=== PATIENT | male | born 1965 | race Caucasian/White ===

== ENCOUNTER 2016-10-21 15:02 | Emergency (ER) | payer OTHER ==
[2016-10-21 15:59] VITALS: BP 131/85; PULSE 87; TEMP 98; BMI 33.3
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
== END 2016-10-21 16:32 | disposition home or self-care (01) ==
LOC: ED 15:02
DX: S39.012A Strain of muscle, fascia and tendon of lower back, initial encounter (principal); V49.40XA Driver injured in collision with unspecified motor vehicles in traffic accident, initial encounter; Y93.9 Activity, unspecified; Y92.410 Unspecified street and highway as the place of occurrence of the external cause
CPT/HCPCS: 99282

== ENCOUNTER 2016-10-24 08:49 | Emergency (ER) | payer OTHER ==
[2016-10-24 08:50] VITALS: BMI 33.3
[2016-10-24] MEDS ORDERED: NS 1,000 ML IV ONE (10:26)
[2016-10-24] MEDS ORDERED: SODIUM CHLORIDE 0.9% 10 ML FLUSH FLUSH PRN (10:26)
--- NOTE | 2016-10-24 10:28 | EDPRACDOC ---
- General Information Chief Complaint: Generalized Weakness Stated Complaint: WEAKNESS (LEGS) Time Seen by Provider: 10/24/16 10:20 Information Source: Patient Home Medications: Home Medications Cyclobenzaprine HCl [Flexeril] 10 mg PO TID PRN #20 tablet 10/21/16 Naproxen Sodium 500 mg PO BID PRN #20 tablet.sa 10/21/16 Oxycodone HCl [Oxycodone Immediate Release] 10 mg PO TID 10/21/16 Alprazolam [Xanax] 1 mg PO Q8H PRN 10/24/16 Diazepam [Valium] 5 mg PO TID PRN #15 tablet 10/24/16 Duloxetine [Cymbalta] 60 mg PO DAILY 10/24/16 Gabapentin [Neurontin] 300 mg PO BID PRN 10/24/16 Lisinopril/Hydrochlorothiazide [Lisinopril-Hctz 20-12.5 mg Tab] 1 tab PO DAILY 10/24/16 Oxycodone Immediate Release [Oxycodone Immediate Release (OxyIR)] 5 mg PO Q6H PRN #20 tab 10/24/16 Prednisone [Deltasone, Orasone] 20 mg PO DAILY #20 tab 10/24/16 Simvastatin [Zocor] 20 mg PO Q48H 10/24/16 Testosterone Cypionate [Depo-Testosterone] 1 ml IM Q14D 10/24/16 Allergies/Adverse Reactions: Allergies Allergy/AdvReac Type Severity Reaction Status Date / Time No Known Allergies Allergy Verified 10/21/16 16:08 - History of Present Illness Onset: yesterday PM Exact Onset of Symptoms: Unknown HPI: Pt states after taking flexeril he became weak and his legs "gave out". Pt went to PCP for medication refill due to back pain and had high BP and dizziness so sent to ED. Denies fever, vision changes, cough, congestion, cp, sob, abd pain, n/v, loss of control bowel or bladder, rash. Symptoms Started: Reports: Suddenly Symptoms Description: Constant Weakness: Bilateral: Generalized Symptoms: Reports: Weak Symptom Severity: Reports: Unable to performs ADL's Associated signs and symptoms:: Reports: None ED Past Medical History - History Reviewed Yes Nurses notes reviewed and agree except as marked - Patient Medical History Neurological History: Reports: Cerebrovascular Accident (11 years ago) Cardiac History: Reports: Hypertension Psychological History: Denies: Depression Additional Past Medical History: CHRONIC BACK PAIN - Social Medical History Smoking Status: Heavy tobacco smoker (5 or more cigarettes/day or daily pipe/ cigar) ETOH: None Substance Abuse: None EDM Review of Systems - Review of Systems Constitutional: Weakness Eyes: No Symptoms Reported. negative: Redness, Blurred Vision, Double Vision, Discharge, Pain, Light Sensitive, Photophobia Ears: No Symptoms Reported. negative: Pain, Hearing Loss, Drainage, Ear Pulling Throat: No Symptoms Reported. negative: Pain, Swelling Nose: No Symptoms Reported. negative: Congestion, Bleeding, Discharge, Injection, Swelling, Deformity, Ecchymosis, Tender, Abrasion, Laceration Mouth: No Symptoms Reported. negative: Pain, Drooling Respiratory: No Symptoms Reported. negative: Cough, Brassy Cough, Barky Cough, Shortness of Breath, Wheezing, Hemoptysis Cardiovascular: No Symptoms Reported. negative: Chest Pain, Palpitations, Syncope, Edema, Orthopnea, PND, Skin Mottling, Cyanosis Gastrointestinal: No Symptoms Reported. negative: Pain, Constipation, Nausea, Vomiting, Diarrhea, Melena, Formula Intolerance Genitourinary: No Symptoms Reported. negative: Dysuria, Hematuria, Frequency, Discharge, Bleeding, Testicular Pain, Neurological: Dizziness, Weakness Musculoskeletal: Back Integumentary: No Symptoms Reported. negative: Itching, Rash, Bruising, Wound Allergic/Immunologic: No Symptoms Reported. negative: Hives, Itching Hematologic: No Symptoms Reported. negative: Lymphadenopathy, Easy Bruising, Easy Bleeding Psychiatric: No Symptoms Reported. negative: Anxiety, Depression, Hallucinations, Insomnia, Suicidal - Physical Exam Constitutional: Alert Oriented to: Time, Person, Place Last recorded Vital Signs: Last Vital Signs Temp 98.5 F 10/24/16 08:58 Pulse 74 10/24/16 09:15 Resp 20 10/24/16 09:15 BP 150/87 10/24/16 09:15 Pulse Ox 95 10/24/16 09:15 Oxygen Pulse Oxygen Saturation 95 O2 Device Room Air Oxygen Flow Rate Fraction of Inspired Oxygen ( FIO2) - HEENT Head: Normal ( normocephalic) Eye Exam: Normal (PERRL, EOMI, Sclera white) Oropharynx: Normal (Pharynx:Moist without exudate,Gums-no swelling) Tympanic Membrane: Normal ENT EAC: Normal TMJ: Normal Nose: No Symptoms Reported (septum midline) Neck: Normal (FROM, trachea at midline) - Respiratory/Cardiovascular Respiratory: Normal - CTA (BBS clear to auscultation without adventitious sounds ) Cardiovascular: Normal (RRR without murmur, gallop or rub) - GI Auscultation: Normal (NABS) Palpation: Normal (Soft,No rebound or guarding, non distended) Tenderness: Non tender Pena's Sign: Negative - Musculoskeletal Back: Lumbar TTP Extremities: Normal (Normal tone, Pulses 2+ No cyanosis or edema, FROM) - Integumentary Skin: Normal, Warm, Dry Lymphatics: Normal (no adenopathy) - Neurologic Memory Impaired: Normal Motor Function: Normal (Normal tone, Pulses 2+ No cyanosis or edema, FROM) Cranial Nerve: Normal (CN II-X11 intact sensation, strength 5/5) Cerebellar: Normal Mood Description: Normal Perception: Normal - Differential Diagnosis Dehydration, Electrolyte disorder, Vertigo, Other (medication reaction) - Results 10/24/16 10:05 10/24/16 10:05 - EKG EKG #1 EKG Time: 09:15 Rate: bpm: 74 [employer]: Normal Rhythm: NSR Block: None ST: Normal - Diagnostic Imaging Chest Image interpreted by: Radiologist IMPRESSION: No active disease. L-Spine Image interpreted by: Radiologist IMPRESSION: 1. Mild degenerative change at the lumbosacral junction, stable compared to previous plain film and MRI exams of 2012. 2. Mild dextroscoliosis which may be positional in nature. 3. No acute findings. MRI: IMPRESSION: 1. Asymmetric right-sided facet hypertrophy at L3-4 with an associated posterior synovial cysts but no significant stenosis. 2. Mild right foraminal narrowing secondary to a mild broad-based disc bulge and facet hypertrophy in the setting of short pedicles. 3. Mild broad-based disc protrusion with chronic endplate marrow change and mild facet hypertrophy leads to mild foraminal narrowing bilaterally, worse on the left. Head Image interpreted by: Radiologist IMPRESSION: 1. No bleed or acute ischemia identified. 2. Chronic changes in the frontal lobes, primarily involving the subcortical white matter, also described on previous studies. 3. Significant paranasal sinus disease. Decision Time to Discharge: 13:58 - Departure Disposition: Home Condition: Good Final Diagnosis: Attacks of weakness, Lumbar radiculopathy Instructions: Weakness (General), Lumbar Radiculopathy (ED) Education/Counseling Given To: Patient Education/Counseling Given Regarding: Diagnosis, Treatment, Follow Up Referrals: None,No Provider [Primary Care Provider] - One Week Gregorio Foster MD [Staff Physician] - One Week Prescriptions: New Diazepam [Valium] 5 mg PO TID PRN #15 tablet PRN Reason: Muscle Spasms Oxycodone Immediate Release [Oxycodone Immediate Release (OxyIR)] 5 mg PO Q6H PRN #20 tab PRN Reason: Pain Prednisone [Deltasone, Orasone] 20 mg PO DAILY #20 tab No Action Oxycodone HCl [Oxycodone Immediate Release] 10 mg PO TID Cyclobenzaprine HCl [Flexeril] 10 mg PO TID PRN #20 tablet PRN Reason: Muscle Spasms Naproxen Sodium 500 mg PO BID PRN #20 tablet.sa PRN Reason: Pain Simvastatin [Zocor] 20 mg PO Q48H Gabapentin [Neurontin] 300 mg PO BID PRN PRN Reason: Pain Alprazolam [Xanax] 1 mg PO Q8H PRN PRN Reason: Anxiety Testosterone Cypionate [Depo-Testosterone] 1 ml IM Q14D Duloxetine [Cymbalta] 60 mg PO DAILY Lisinopril/Hydrochlorothiazide [Lisinopril-Hctz 20-12.5 mg Tab] 1 tab PO DAILY Additional Instructions: Follow up with Personal MD in 1-2 days. Return for worse or different symptoms.
[2016-10-24 10:39] LABS: AUTOMATED BASOPHIL 0.5 % (0-2); AUTOMATED LYMPH 30.1 % (17-44); AUTOMATED MONOCYTE 9.7 % (3-10); AUTOMATED NEUTROPHIL 56.7 % (45-76)
[2016-10-24 10:45] LABS: LEUKOCYTES/URINE NEG (NEGATIVE); NITRITE/URINE NEG (NEGATIVE); RBC/URINE 0-2 (0-2); URINE OCCULT BLOOD NEG (NEG/TRACE); WBC/URINE 0-2 (0-2)
[2016-10-24 10:55] LABS: PT-INR 1.1
[2016-10-24 10:57] LABS: BLOOD UREA NITROGEN 10 MG/DL (9-20); CALC CORRECTED 8.8 MG/DL (8.4-10.2); CALCIUM 8.5 MG/DL (8.4-10.2); CALCULATED OSMOLALITY 264 MOs/Kg (270-290); CHLORIDE 101 mEq/L (98-107); GLUCOSE 111 MG/DL (70-99); SODIUM LEVEL 137 mEq/L (137-146); TOTAL PROTEIN 6.8 G/DL (6.3-8.2)
[2016-10-24] MEDS ORDERED: NS 1,000 ML IV SCH (11:00)
--- NOTE | 2016-10-24 11:46 | DIRPT ---
CLINICAL DATA: Dizziness with multiple falls. EXAM: CHEST 1 VIEW COMPARISON: None. FINDINGS: The heart size is borderline but poorly evaluated on a portable film. The sheila and mediastinum are normal. No pulmonary nodules, masses, or focal infiltrate. No overt edema. IMPRESSION: No active disease. Electronically Signed By: Jono Whitney III, M.D On: 10/24/2016 11:43
--- NOTE | 2016-10-24 11:46 | DIRPT ---
CLINICAL DATA: Multiple falls today, chronic back pain for years. EXAM: LUMBAR SPINE - COMPLETE 4+ VIEW COMPARISON: Plain film of the lumbar spine dated 06/26/2012 and MRI of the lumbar spine dated 07/04/2012. FINDINGS: Stable mild degenerative change at the lumbosacral junction with associated disc space narrowing and mild osseous spurring. Remainder the disc spaces of the lumbar spine and lower thoracic spine appear well preserved. There is a mild dextroscoliosis at the thoracolumbar junction which may be positional in nature. Osseous alignment appears otherwise normal. No fracture line or displaced fracture fragment seen. No acute - appearing cortical irregularity or osseous lesion. Bone mineralization is normal. Upper sacrum appears intact and normal in mineralization. Atherosclerotic changes noted along the gracia of the infrarenal abdominal aorta. Paravertebral soft tissues otherwise unremarkable. IMPRESSION: 1. Mild degenerative change at the lumbosacral junction, stable compared to previous plain film and MRI exams of 2011. 2. Mild dextroscoliosis which may be positional in nature. 3. No acute findings. Electronically Signed By: Jimmy Rogel M.D. On: 10/24/2016 11:44
--- NOTE | 2016-10-24 11:55 | DIRPT ---
CLINICAL DATA: Bilateral lower extremity weakness EXAM: CT HEAD WITHOUT CONTRAST TECHNIQUE: Contiguous axial images were obtained from the base of the skull through the vertex without intravenous contrast. COMPARISON: There are no comparisons available for review. However, reports from previous brain CT and MRIs from November 2002 were utilized. FINDINGS: Significant paranasal sinus disease is identified with mucosal thickening and opacification. The perinasal sinus disease involves the frontal, ethmoid, sphenoid, and maxillary sinuses. No air-fluid levels identified. No associated bony erosion is seen on this study. The mastoid air cells and middle ears are well-aerated. No bony abnormalities. Extracranial soft tissues are normal. No subdural, epidural, or subarachnoid hemorrhage. No mass, mass effect, or midline shift. Ventricles and sulci are unremarkable. The cerebellum, brainstem, and basal cisterns are normal. White matter changes in the frontal lobes bilaterally, left greater than right, are described on previous studies. There appears to be minimal cortical involvement on the left towards the vertex, also described on the previous MRI. No acute cortical ischemia identified. IMPRESSION: 1. No bleed or acute ischemia identified. 2. Chronic changes in the frontal lobes, primarily involving the subcortical white matter, also described on previous studies. 3. Significant paranasal sinus disease. Electronically Signed By: Jono Whitney III, M.D On: 10/24/2016 11:52
[2016-10-24] MEDS ORDERED: MORPHINE 4 MG/ML INJECTION IV ONE (12:23)
[2016-10-24 13:38] VITALS: PULSE 82; TEMP 97.7
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
[2016-10-24 14:12] VITALS: BP 175/94
== END 2016-10-24 14:12 | disposition home or self-care (01) ==
LOC: ED 08:49
DX: R53.1 Weakness (principal); M54.16 Radiculopathy, lumbar region; R20.9 Unspecified disturbances of skin sensation
CPT/HCPCS: 36415; 70450; 71010; 72110; 72148; 80053; 81001; 84484; 85025; 85610; 85730; 93005; 96361; 96374; 99284; J2270